=== PATIENT | male | born 1940 | race Caucasian/White ===

== ENCOUNTER 2016-09-01 07:26 | Outpatient (CLI) | payer MEDICARE, OTHER ==
[2012-08-01 21:25] VITALS: BP 162/82
[2016-09-01 09:53] LABS: eGFR (African) > 60; eGFR (Non-African) > 60
== END 2016-09-01 07:27 ==
LOC: LAB 07:26
PROVIDERS: ATTEND Family Medicine
DX: E11.9 Type 2 diabetes mellitus without complications (principal); I10 Essential (primary) hypertension
CPT/HCPCS: 36415; 80053; 82043; 83036

== ENCOUNTER 2017-04-21 07:00 | Outpatient (CLI) | payer MEDICARE, OTHER ==
[2012-08-01 21:25] VITALS: BP 162/82
[2017-04-21 07:41] LABS: BASOPHILS % 0.8 (0.0-1.5); EOSINOPHILS % 3.8 % (0.0-6.8); MEAN CORPUSCULAR HEMOGLOBIN 31.1 pg (28.0-34.0); MEAN CORPUSCULAR VOLUME 91.9 fl (80.0-100.0); NEUTROPHILS # 5.1 # k/uL (1.4-7.7)
[2017-04-21 08:00] LABS: eGFR (African) > 60; eGFR (Non-African) > 60
== END 2017-04-21 07:02 ==
LOC: LAB 07:00
PROVIDERS: ATTEND Internal Medicine Cardiovascular Disease
DX: I25.110 Atherosclerotic heart disease of native coronary artery with unstable angina pectoris (principal); E78.00 Pure hypercholesterolemia, unspecified; I10 Essential (primary) hypertension
CPT/HCPCS: 36415; 80053; 80061; 84443; 85025

== ENCOUNTER 2017-05-27 07:11 | Outpatient (CLI) | payer MEDICARE, OTHER ==
[2012-08-01 21:25] VITALS: BP 162/82
== END 2017-05-27 07:12 ==
LOC: LAB 07:11
PROVIDERS: ATTEND Family Medicine
DX: E11.9 Type 2 diabetes mellitus without complications (principal)
CPT/HCPCS: 36415; 82043; 83036

== ENCOUNTER 2017-09-07 07:37 | Outpatient (CLI) | payer MEDICARE, OTHER ==
[2012-08-01 21:25] VITALS: BP 162/82
[2017-09-07 08:26] LABS: eGFR (Non-African) > 60
== END 2017-09-07 07:40 ==
LOC: LAB 07:37
PROVIDERS: ATTEND Family Medicine
DX: E11.9 Type 2 diabetes mellitus without complications (principal)
CPT/HCPCS: 36415; 80053; 80061; 83036

== ENCOUNTER 2017-11-16 06:15 | Emergency (ER) | payer MEDICARE, OTHER ==
--- NOTE | 2017-11-16 06:29 | ED Physician Documentation ---
Dizziness - HISTORIAN Historian: patient - HPI Stated Complaint: dizziness and vomiting Chief Complaint: Dizziness Timing: sudden onset Duration: noted on awakening (at 0430 ) Last known Well Code/Unknown Code: Unknown Severity: moderate Associated Symptoms: nausea, vomiting, sense of spinning, headache (after vomiting ), sweating, light headedness. denies: vestibular, hearing loss, ringing in ear, roaring in ear, ear pain, sense of falling, weakness, numbness, fainted, nearly fainted, sense of confusion Decreased Ability to Stand/ Walk: off balance, walks w/o assistance. denies: weak, difficult, cannot walk, cannot stand, falling Usually: walks w/o assistance Worsened By: other (laying flat ) Further Comments: yes (he reports he did wake at around 0430 this am and went to use the restroom where he noticed he was "off" he states he fell into the wall "like I was drinking" and he states he felt mildly nauseated. he went back to bed without incidence and he was laying in bed when he noticed the room spinning. He states he then became very nauseated . He reports he was recently changed on b/p meds. He states Dr Castro added Lisinopril and that med made him cough - so they changed him to Losartan but this also "didnt agree with me - I felt like I wanted to cough so I stopped that about a week ago but I havent told Dr Castro that I stopped the med" . He states sitting in the bed he has a mild headache which he feels is from the vomiting. He denies any recent illness. He did eat later last night a bowl of cherios. He did not check his blood sugar this am. He has not had a recent cough. He denies any weakness or memory issues) - ROS CONST: none EYES/ENT: none GI/: none MS/SKIN/LYMPH: none NEURO/PSYCH: none CVS/RESP: none - PAST HX Past History: diabetes Type 2 Cardiac Disease: CHF Surgeries/Procedures: other (1999 ) Immunizations: UTD - SOCIAL HX Smoking History: non-smoker Alcohol Use: none Drug Use: none - FAMILY HX Family History: none - VITAL SIGNS Vital Signs: Vital Signs Temp Pulse Resp BP Pulse Ox 162/82 08/01/12 21:18 - REVIEWED ASSESSMENTS Nursing Assessment Reviewed: Yes Vitals Reviewed: Yes <Venessa Khalil - Last Filed: 11/16/17 07:05> - VITAL SIGNS Vital Signs: Vital Signs Temp Pulse Resp BP Pulse Ox 97.1 F L 63 22 143/81 98 11/16/17 06:15 11/16/17 06:15 11/16/17 06:15 11/16/17 06:15 11/16/17 06:15 <Brandon Lyle - Last Filed: 11/16/17 08:48> - PAST HX Allergies/Adverse Reactions: Allergies Allergy/AdvReac Type Severity Reaction Status Date / Time No Known Allergies Allergy Verified 08/01/12 19:16 Progress - Progress Progress: 0700: Care turned over to Dr Lyle DG <Venessa Khalil - Last Filed: 11/16/17 07:05> ED Results Lab/Radiology - Lab Results Lab Results: Lab Results 11/16/17 11/16/17 11/16/17 06:35 06:35 06:30 WBC 7.10 K/ul K/ul (4.00-12.00) RBC 4.72 M/ul M/ul (3.90-5.20) Hgb 15.0 g/dL g/dL (12.0-18.0) Hct 44.2 % % (37.0-53.0) MCV 93.7 fl fl (80.0-100.0) MCH 31.8 pg pg (28.0-34.0) MCHC 33.9 g/dL g/dL (30.0-36.0) RDW 13.4 % % (11.3-14.3) Plt Count 189 K/mm3 K/mm3 (130-400) Neut % (Auto) 59.7 % % (39.0-79.0) Lymph % (Auto) 28.3 % % (16.0-50.0) [place] % (Auto) 6.4 % % (0.0-11.0) Eos % (Auto) 2.4 % % (0.0-6.8) Baso % (Auto) 0.4 (0.0-1.5) Neut # (Auto) 4.2 # k/uL # k/uL (1.4-7.7) Lymph # (Auto) 2.0 # k/uL # k/uL (0.6-4.0) [place] # (Auto) 0.5 # k/uL # k/uL (0.0-0.9) Eos # (Auto) 0.2 # k/uL # k/uL (0.0-0.6) Baso # (Auto) 0.0 # k/uL # k/uL (0.0-0.5) Reactive Lymphs % 2.8 % % (0.0-5.0) Reactive Lymphs # 0.2 # k/uL # k/uL (0.0-0.8) Sodium 138 mmol/L mmol/L (136-145) Potassium 4.2 mmol/L mmol/L (3.5-5.1) Chloride 101 mmol/L mmol/L (98-107) Carbon Dioxide 28 mmol/L mmol/L (22-30) BUN 28 mg/dL H mg/dL (9-20) Creatinine 1.00 mg/dL mg/dL (0.66-1.25) Estimated Creat Clear 126 Est GFR ( Amer) > 60 (60 - ) Est GFR (Non-Af Amer) > 60 (60 - ) Glucose 182 mg/dL H mg/dL (74-106) Calcium 10.7 mg/dL H mg/dL (8.4-10.2) Total Bilirubin 0.4 mg/dL mg/dL (0.2-1.3) AST 30 U/L U/L (15-46) ALT 31 U/L U/L (13-69) Alkaline Phosphatase 53 U/L U/L (38-126) NT-Pro-B Natriuret Pep 173.6 pg/mL pg/mL (15.0-450.0) Total Protein 7.7 g/dL g/dL (6.3-8.2) Albumin 4.2 g/dL g/dL (3.5-5.0) - Radiology Radiology Impressions: 3 views of the chest History: WHEEZING AND DIZZINESS TODAY No comparison studies Mild cardiomegaly. Pulmonary vascular congestion seen. Bibasilar atelectasis. No pleural effusion or pneumothorax. No acute osseous pathology Impression: 1. Mild pulmonary vascular congestion. Bibasilar atelectasis. CT head History: DIZZINESS UPON STANDING TODAY The multiple axial images of the brain are submitted with reconstructions No comparison studies No evidence of acute intracranial hemorrhage. No midline shift. Dental hardware causes artifacts. 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 The paranasal air sinuses and mastoid air cells are well aerated. Impression: 1. No evidence of acute intracranial hemorrhage. No midline shift 2. 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 - Orders Orders: ED Orders Category Date Time Status Place IV Lock 1T Care 11/16/17 06:30 Active CHEST 2VIEW [RAD] Stat Exams 11/16/[address] BRAIN W/O CONTRAST Stat Exams 11/16/17 Completed BNP [NT-proBNP] Stat Lab 11/16/17 06:30 Completed CBC/PLATELET/DIFF Routine Lab 11/16/17 06:35 Completed CMP Routine Lab 11/16/17 06:35 Completed UA W/MICRO IF INDICATED Routine Lab 11/16/17 06:55 Ordered URINALYSIS Routine Lab 11/16/17 Ordered 0.9 % Sodium Chloride [Normal Saline] 1,000 ml Med 11/16/17 06:30 Discontinued IV Q10H 0.9 % Sodium Chloride [Normal Saline] 1,000 ml Med 11/16/17 06:42 Ordered IV Q10H Ondansetron HCl Rapdis [Zofran Odt] Med 11/16/17 06:30 Discontinued 4 mg PO NOW ONE EKG WITH COMPARISON Stat Ther 11/16/17 Ordered <Brandon Lyle - Last Filed: 11/16/17 08:48> Dizziness Physical Exam - Physical Exam General Appearance: no distress EENT: eye inspection normal, ENT inspection normal, JIMMY, no nystagmus, TM's nml Neck: normal inspection Respiratory: no respiratory distress, wheezes (exp Upper lobes ) CVS: reg rate & rhythm, heart sounds normal, equal pulses, no murmur Abdomen: soft, normal bowel sounds, non-tender Skin: warm/dry, normal color Neuro: nml orientation, nml speech, nml cognition, mood/affect nml Extremities: non-tender, normal range of motion, no evidence of injury, edema Cranial: nml as tested, no evidence of acute CVA Cerebellar: nml as tested Sensorimotor: motor nml, sensation nml <Venessa Khalil - Last Filed: 11/16/17 07:05> - Physical Exam EENT: other (hearing impaired but at baseline. ) <Brandon Lyle - Last Filed: 11/16/17 08:48> Discharge <Venessa Khalil - Last Filed: 11/16/17 07:05> Decision to Admit: NO Date of Decison to Admit: 11/16/17 Decision Time: 07:57 <Brandon Lyle - Last Filed: 11/16/17 08:48> Clincal Impression: Labyrinthitis, acute Qualifiers: Laterality: unspecified laterality Qualified Code(s): H83.09 - Labyrinthitis, unspecified ear Referrals: Brandon Lyle MD [Primary Care Provider] - 2 Days Additional Instructions: Home and make sure you sty well hydrated. Take Meclizine (Antivert) 25mg every 6 hours as needed for dizziness. Try not to move your head suddenly. No driving or doing anything that you would not be safe if the diaainess returned until you can move your head with no symptoms. Condition: Stable Disposition: 01 HOME, SELF-CARE
[2017-11-16 06:39] LABS: BASOPHILS % 0.4 (0.0-1.5); EOSINOPHILS % 2.4 % (0.0-6.8); MEAN CORPUSCULAR HEMOGLOBIN 31.8 pg (28.0-34.0); MEAN CORPUSCULAR VOLUME 93.7 fl (80.0-100.0); MONOCYTES % 6.4 % (0.0-11.0); NEUTROPHILS # 4.2 # k/uL (1.4-7.7)
[2017-11-16] MEDS: 0.9 % SODIUM CHLORIDE 1,000 ML IV SCH ×2 (06:40)
[2017-11-16] MEDS: ONDANSETRON HCL 4 MG TAB.RAPDIS PO ONE (06:40)
[2017-11-16] MEDS: 0.9 % SODIUM CHLORIDE 1,000 ML IV ONE (06:44)
[2017-11-16 06:57] LABS: eGFR (African) > 60; eGFR (Non-African) > 60
--- NOTE | 2017-11-16 07:20 | Diagnostic Imaging Report ---
BROOKE ORDONEZ [facility] [address] [facility] [address] [place], [place]. [address] Report Submission Date: Nov 16, 2017 7:13:12 AM CDT Patient Study Name: ALEXANDRIA GOTTLIEB Date: Nov 16, 2017 6:48:14 AM CDT Modality Type: CT\SR Gender: M Description: CT BRAIN W/O CONTRAST : 44 Institution: [facility] Physician: BROOKE ORDONEZ CT head History: DIZZINESS UPON STANDING TODAY The multiple axial images of the brain are submitted with reconstructions No comparison studies No evidence of acute intracranial hemorrhage. No midline shift. Dental hardware causes artifacts. 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 The paranasal air sinuses and mastoid air cells are well aerated. Impression: 1. No evidence of acute intracranial hemorrhage. No midline shift 2. 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 Electronically signed on Nov 16, 2017 7:13:12 AM CDT by: Jade SPENCER
--- NOTE | 2017-11-16 07:20 | Diagnostic Imaging Report ---
BROOKE ORDONEZ [facility] [place] [facility] [address] [facility] [address] [place], [place]. [address] Report Submission Date: Nov 16, 2017 7:15:57 AM CDT Patient Study Name: ALEXANDRIA GOTTLIEB Date: Nov 16, 2017 6:55:12 AM CDT Modality Type: DX Gender: M Description: CHEST : 44 Institution: [facility] [place] [facility] Physician: BROOKE ORDONEZ 3 views of the chest History: WHEEZING AND DIZZINESS TODAY No comparison studies Mild cardiomegaly. Pulmonary vascular congestion seen. Bibasilar atelectasis. No pleural effusion or pneumothorax. No acute osseous pathology Impression: 1. Mild pulmonary vascular congestion. Bibasilar atelectasis. Electronically signed on Nov 16, 2017 7:15:57 AM CDT by: Jade SPENCER
[2017-11-16] MEDS: MECLIZINE HCL 25 MG TABLET PO ONE (07:50)
[2017-11-16 08:32] VITALS: BP 158/89
== END 2017-11-16 08:13 | disposition home or self-care (01) ==
LOC: ED 06:15
DX: H83.09 Labyrinthitis, unspecified ear (principal)
CPT/HCPCS: 70450; 71046; 80053; 83880; 85025; 93005; A9270; J7030; 96365; 96366; 99285; S1016

== ENCOUNTER 2018-07-22 07:11 | Outpatient (CLI) | payer MEDICARE, OTHER ==
[2018-07-22 07:43] LABS: MEAN CORPUSCULAR HEMOGLOBIN 31.2 pg (28.0-34.0)
[2018-07-22 07:44] LABS: BASOPHILS % 0.8 (0.0-1.5); EOSINOPHILS % 2.3 % (0.0-6.8); MONOCYTES % 8.7 % (0.0-11.0); NEUTROPHILS # 5.4 # k/uL (1.4-7.7)
[2018-07-22 08:05] LABS: eGFR (Non-African) > 60
== END 2018-07-22 07:13 ==
LOC: LAB 07:11
PROVIDERS: ATTEND Internal Medicine Cardiovascular Disease
DX: E78.00 Pure hypercholesterolemia, unspecified (principal); I10 Essential (primary) hypertension; I25.110 Atherosclerotic heart disease of native coronary artery with unstable angina pectoris; E11.9 Type 2 diabetes mellitus without complications
CPT/HCPCS: 36415; 80053; 80061; 83036; 84443; 85025